=== PATIENT | male | born 1960 | race Caucasian/White ===

== ENCOUNTER 2016-11-15 07:19 | Emergency (ER) | payer MEDICARE ==
[2016-11-15] MEDS ORDERED: OPTIRAY 350 100 ML VIAL HMH IV ONE (07:20)
[2016-11-15] MEDS ORDERED: MORPHINE 4 MG/ML SYR ONE (08:36)
[2016-11-15] MEDS ORDERED: ONDANSETRON 4 MG VIAL ONE (08:36)
[2016-11-15] MEDS ORDERED: SODIUM CHLORIDE 0.9% 1,000 ML ONE (08:37)
== END 2016-11-15 11:16 | disposition home or self-care (01) ==
LOC: ER 07:19
CPT/HCPCS: 74177 ×2; 96361 ×2; 96374 ×2; 96375 ×2; 99284; J2270; J2405; Q9967